=== PATIENT | male | born 1995 | race Caucasian/White ===

== ENCOUNTER 2025-02-06 21:09 | Emergency (ER) | payer OTHER ==
[~2025-02-06] VITALS: Ht 182.9 cm; Wt 68.0 kg
[2025-02-06 21:40] VITALS: BP 133/95
[2025-02-06] MEDS ORDERED: AMOX500 PO (21:41)
[2025-02-06] MEDS ORDERED: RX Prepack 6 Tabs Oxycodone 5mg UD ONE (21:45)
== END 2025-02-06 21:58 | disposition home or self-care (01) ==
LOC: ER 21:09
DX: K04.7 Periapical abscess without sinus (principal); Z59.89 Other problems related to housing and economic circumstances
CPT/HCPCS: 99282; A9270